=== PATIENT | female | born 1975 | race Caucasian/White ===

== ENCOUNTER → 2023-12-15 07:28 | Outpatient (REF) | payer BC, SELFPAY | LOC: EMG 07:28 | PROVIDERS: ATTENDING PHYSICIAN Internal Medicine Rheumatology; FAMILY PHYSICIAN Physician Assistant Medical | DX: M05.9 Rheumatoid arthritis with rheumatoid factor, unspecified (principal); R20.0 Anesthesia of skin | CPT/HCPCS: 95886; 95911 ==